=== PATIENT | male | born 1975 | race Caucasian/White ===

== ENCOUNTER 2018-12-28 18:18 | Emergency (ER) | payer MEDICAID ==
[2018-12-28] MEDS: ACETAMINOPHEN 325 MG TAB PO (22:14)
[2018-12-28] MEDS: KETOROLAC 15 MG INJ IM (22:15)
[2018-12-28] MEDS: SOD CHLORIDE 0.9% 500 ML IV (22:23)
== END 2018-12-28 23:53 | disposition home or self-care (01) ==
LOC: FTE 18:18
DX: J10.1 Influenza due to other identified influenza virus with other respiratory manifestations (principal)
CPT/HCPCS: 71045; 87400; 96372; 99284-25